=== PATIENT | male | born 1950 | race Two or more races ===

== ENCOUNTER → 2018-07-03 | Outpatient (CLI) | payer OTHER ==
[~2018-07-03] VITALS: Ht 172.7 cm; Wt 110.1 kg
[~2018-07-03] MED LIST: ACAR50TA11 PO; ALBU90AE IH; ASPI-556 PO; ATOR10TA84 PO; CARV3 PO; FURO40 PO; INSU100I24 SQ; LIRA0.6P SQ; LORA10TA7 PO; MOME13HF IH; OMEP20 PO; SPIR25 PO
[2018-07-03 09:00] VITALS: BP 111/64
== END | disposition home or self-care (01) ==
LOC: HBOWC 08:13
PROVIDERS: ATTEND Surgery Plastic and Reconstructive Surgery
DX: S01.20XA Unspecified open wound of nose, initial encounter (principal); J34.89 Other specified disorders of nose and nasal sinuses; I10 Essential (primary) hypertension; Z86.73 Personal history of transient ischemic attack (TIA), and cerebral infarction without residual deficits; X58.XXXA Exposure to other specified factors, initial encounter; Y93.89 Activity, other specified; Y92.89 Other specified places as the place of occurrence of the external cause; Y99.8 Other external cause status